=== PATIENT | female | born 1945 | race Caucasian/White ===

== ENCOUNTER 2019-07-21 04:53 | Inpatient (IN) ==
[~2019-07-21 04:53] MED LIST: 0.9 % SODIUM CHLORIDE 250 ML IV SCH
[2019-07-21] MEDS ORDERED: SCOPOLAMINE 1 PATCH PATCH TOPICAL PRN (05:00)
[2019-07-21] MEDS ORDERED: IPRATROPIUM/ALBUTEROL 3 ML AMPUL.NEB NEB PRN ×2 (05:00→09:51)
[2019-07-21 05:22] LABS: POC Blood Urea Nitrogen 23 mg/dl (8-23); POC CO2 28 mmol/L (22-30); POC Calcium, Ionized 1.15 mmol/L (1.16-1.32); POC Chloride 100 mmol/L (96-108); POC Creatinine 1.3 mg/dl (0.6-1.1); POC Glucose, Random 108 mg/dL (70-105); POC Potassium 4.4 mmol/L (3.3-5.1); POC Sodium 135 mmol/L (133-145)
[2019-07-21] MEDS ORDERED: cefOXitin 2 GM VIAL IV SCH (06:00)
[2019-07-21] MEDS ORDERED: ROCURONIUM 10 MG/ML ML IV ONE (07:44)
[2019-07-21] MEDS ORDERED: MIDAZOLAM 2 MG/2 ML VIAL ONE (07:44)
[2019-07-21] MEDS ORDERED: DEXAMETHASONE 10 MG/ML VIAL ONE (07:44)
[2019-07-21] MEDS ORDERED: KETAMINE 10 MG/ML ML ONE (07:44)
[2019-07-21] MEDS ORDERED: ONDANSETRON 4 MG/2 ML VIAL ONE (07:44)
[2019-07-21] MEDS ORDERED: HYDROmorphone 2 MG/ML VIAL ONE (07:44)
[2019-07-21] MEDS ORDERED: LIDOCAINE HCL/PF 100 MG/5 ML SYRINGE IV ONE (07:44)
[2019-07-21] MEDS ORDERED: PROPOFOL 200 MG/20 ML VIAL IV ONE (07:44)
[2019-07-21] MEDS ORDERED: SUGAMMADEX SODIUM 200 MG/2 ML VIAL IV ONE (07:44)
[2019-07-21] MEDS ORDERED: GLYCOPYRROLATE 0.2 MG/ML VIAL IV ONE (07:44)
[2019-07-21] MEDS ORDERED: GELATIN SPONGE,ABSORBABLE 1 EACH SPONGE TOPICAL ONE (09:00)
[2019-07-21] MEDS ORDERED: BUPIVACAINE W/EPI 0.25% 50 ML VIAL IJ ONE (09:10)
[2019-07-21] MEDS ORDERED: ONDANSETRON 4 MG/2 ML VIAL IV PRN ×2 (09:25→09:51)
[2019-07-21] MEDS ORDERED: ONDANSETRON 4 MG ODT TABLET SL PRN (09:37)
[2019-07-21] MEDS ORDERED: ALBUTEROL SULFATE 1 PUFF INHALER INH PRN (09:37)
[2019-07-21] MEDS ORDERED: MUPIROCIN OINT 2% 22GM TOPICAL PRN (09:37)
--- NOTE | 2019-07-21 09:41 | Brief Operative Note ---
Date of procedure: 07/21/19 Pre-op diagnosis: right pyelonephritis Post-op diagnosis: same Procedure: right nephrectomy Grafts/Implants: No Anesthesia: GETA Findings: see note Complications: none Surgeon: Sai Nicolas Vice President Quality Improvement: Arden Herndon Estimated blood loss (cc): 1,000 Specimens Removed/Pathology: other (kidney) Condition: stable Disposition: PACU
--- NOTE | 2019-07-21 09:43 | XRay Report ---
HISTORY: Missing metal surgical clamp in the OR FINDINGS: There are no retained surgical instruments within the abdomen. The inferior pelvis is outside the field of view. There are numerous surgical skin reina in the right upper quadrant and there are also multiple vascular clips located to the right of midline, paralleling the lumbar spine. The bowel gas pattern is normal. There is an old severe wedge compression fracture T12 IMPRESSION: No retained surgical instruments Interpreted and Authenticated by: Eran Kumar 07/21/19
[2019-07-21] MEDS ORDERED: METHOCARBAMOL 1,000 MG/10 ML VIAL IV PRN (09:51)
[2019-07-21] MEDS ORDERED: MEPERIDINE 25 MG/ML SYRINGE IV PRN (09:51)
[2019-07-21] MEDS ORDERED: LACTATED RINGERS 1,000 ML IV SCH (10:00)
--- NOTE | 2019-07-21 10:03 | Operative Note ---
DATE OF OPERATION: 07/21/2019 PREOPERATIVE DIAGNOSIS: Right pyelonephritis. POSTOPERATIVE DIAGNOSIS: Right pyelonephritis. PROCEDURE: Right nephrectomy. SURGEON: Sai Nicolas M.D. SILVICULTURIST: Arden Herndon M.D. INDICATION: The patient is a 74-year-old lady who has recurrent urinary infections. These are enterococcus. 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 There is only approximately 15 to 20% function on this side, and the decision was made because of recurrent infections to remove the kidney. PROCEDURE: The patient was identified and consent was signed. She was given general anesthesia, placed in supine position, and prepped and draped in standard fashion. An incision was made subcostally, and this was carried down to the fascia with electrocautery. The abdominal cavity was opened, and we were able to identify the colon. This was carefully rotated medially, and an incision was made along the white line of Toldt. We then carefully dissected down to the blood vessels. At this point, the renal artery was transected, and we were finally able to get bleeding under control, and this was doubly-ligated. We were then able to find the renal artery and divide this and then also accessory arteries and veins. At this point, this freed up the hilum. There was scar tissue inferiorly in the retroperitoneum. This was divided. We were able to find the ureter and open this and remove the stent without difficulty. The ureter was doubly-ligated and then the kidney was removed. We did irrigate the wound copiously. Gelfoam and Avitene were then placed in the wound and bleeding was controlled. The bowel was placed back in its normal position. The fascia was closed in two layers with 0 PDS. Subcutaneous tissue was closed after irrigation. The wound was closed with reina. The patient was then awoken and taken to recovery room in stable condition. Local anesthesia was used and estimated blood loss was 1000 mL. She did receive 1 unit of red blood cells. Needle and sponge count were correct. BUTCH:kristine Job ID: [id number] Doc ID: [id number] Sai Nicolas MD
[2019-07-21] MEDS: fentaNYL 100 MCG/2 ML VIAL IV PRN ×2 (10:14→10:16)
[2019-07-21] MEDS: DEXTROSE 5%-1/2NS W/20MEQ KCL 1,000 ML IV SCH ×2 (10:50→21:19)
[2019-07-21] MEDS: VANCOMYCIN 1,000 MG in 0.9 % SODIUM CHLORIDE 250 ML IV SCH (11:01)
[2019-07-21] MEDS: 0.9 % SODIUM CHLORIDE 10 ML SYRINGE IV SCH ×6 (11:15→22:00)
[2019-07-21] MEDS: INSULIN LISPRO 1 UNIT/0.01 ML UNIT SQ SCH ×3 (11:52→20:49)
[2019-07-21] MEDS ORDERED: POTASSIUM CHLORIDE 10 MEQ TABLET PO SCH (12:00)
[2019-07-21] MEDS: MUPIROCIN OINT 2% 22GM NARES SCH ×2 (12:39→20:48)
[2019-07-21] MEDS: ACETAMINOPHEN 650 MG/65 ML BOTTLE IV PRN ×2 (13:38→20:55)
[2019-07-21] MEDS: SUCRALFATE 1 GM TABLET PO SCH ×3 (13:44→20:51)
[2019-07-21] MEDS: LORazepam 1 MG TABLET PO PRN ×2 (14:05→21:45)
[2019-07-21] MEDS: FAMOTIDINE 20 MG TABLET PO SCH (20:51)
[2019-07-21] MEDS: ALLOPURINOL 100 MG TABLET PO SCH (20:51)
[2019-07-21] MEDS: DOCUSATE SODIUM 100 MG CAPSULE PO SCH (20:51)
[2019-07-22] MEDS: BUDESONIDE 0.5 MG/2 ML AMPUL.NEB NEB SCH ×2 (01:20→09:33)
[2019-07-22] MEDS: LORazepam 1 MG TABLET PO PRN ×2 (04:47→22:19)
[2019-07-22] MEDS: 0.9 % SODIUM CHLORIDE 10 ML SYRINGE IV SCH ×4 (05:28→23:24)
[2019-07-22 05:54] LABS: Hematocrit 37.1 % (36.0-48.0); Hemoglobin 11.9 g/dL (12.0-15.0); Mean Cell Volume 93.3 fL (80.0-100.0); Mean Corpuscular HGB Conc 32.1 g/dL (31.0-36.0); Mean Platelet Volume 7.6 fL (7.4-10.4); Platelet Count 168 K/mcL (140-440); RBC 3.98 M/mcL (4.00-5.20); Red Cell Distribution Width 17.6 % (11.5-14.5); WBC 13.2 K/mcL (4.5-11.0)
[2019-07-22 06:48] LABS: Blood Urea Nitrogen 20 mg/dl (8-23); Carbon Dioxide 20 mmol/L (22-30); Chloride 97 mmol/L (96-108); Glomerular Filtration Rate 44; Glucose 270 mg/dL (70-105)
[2019-07-22] MEDS ORDERED: 0.9 % SODIUM CHLORIDE 1,000 ML IV SCH (07:15)
--- NOTE | 2019-07-22 07:20 | General Surgery Progress Note ---
Subjective Patient reports: pain is less, tolerating liquids well, no flatus Narrative: Note initiated : 07/22/19 at 7:18 am Service Date, if different from initiated Date: [] Patient: Luly Alba 74 y/o F admitted on 07/21/19 for Right Nephrectomy. Chief Complaint: POD #1 patient doing well. K+ is high. will change iv fluid. wound clean and dry. ambulate today. keep on telemetry for time being. Objective Temp Pulse Resp BP Pulse Ox 97.2 F 65 16 104/52 96 07/22/19 04:00 07/21/19 23:40 07/22/19 04:00 07/22/19 04:00 07/22/19 04:00 - Additional Data Intake & Output - Last 24 hours: Intake & Output 07/20/19 07/21/19 07/22/19 07/23/19 05:59 05:59 05:59 05:59 Intake Total 4850 Output Total 2150 Balance 2700 Weight 183 lb 193 lb - Labs 07/22/19 03:50 07/22/19 03:50 Diabetes panel 07/22/19 Range/Units 03:50 Sodium 130 L (133-145) mmol/L Potassium 5.9 H* (3.3-5.1) mmol/L Chloride 97 (96-108) mmol/L Carbon Dioxide 20 L (22-30) mmol/L BUN 20 (8-23) mg/dl Creatinine 1.2 H (0.6-1.1) mg/dl Glucose 270 H (70-105) mg/dL Calcium 8.0 L (8.6-10.4) mg/dl Calcium panel 07/22/19 Range/Units 03:50 Calcium 8.0 L (8.6-10.4) mg/dl Pituitary panel 07/22/19 Range/Units 03:50 Sodium 130 L (133-145) mmol/L Potassium 5.9 H* (3.3-5.1) mmol/L Chloride 97 (96-108) mmol/L Carbon Dioxide 20 L (22-30) mmol/L BUN 20 (8-23) mg/dl Creatinine 1.2 H (0.6-1.1) mg/dl Glucose 270 H (70-105) mg/dL Calcium 8.0 L (8.6-10.4) mg/dl Adrenal panel 07/22/19 Range/Units 03:50 Sodium 130 L (133-145) mmol/L Potassium 5.9 H* (3.3-5.1) mmol/L Chloride 97 (96-108) mmol/L Carbon Dioxide 20 L (22-30) mmol/L BUN 20 (8-23) mg/dl Creatinine 1.2 H (0.6-1.1) mg/dl Glucose 270 H (70-105) mg/dL Calcium 8.0 L (8.6-10.4) mg/dl Assessment and Plan - Time Spent With Patient Total time spent is greater than 50% in coordination of care (as documented) at patient's floor/unit and/or counseling patient:
[2019-07-22] MEDS: oxyCODONE/APAP 5/325MG TABLET PO PRN ×3 (07:44→17:29)
[2019-07-22] MEDS: INSULIN LISPRO 1 UNIT/0.01 ML UNIT SQ SCH ×4 (07:44→22:10)
[2019-07-22] MEDS: 0.9 % SODIUM CHLORIDE 1,000 ML IV SCH ×2 (07:46→22:01)
[2019-07-22] MEDS: AMIODARONE HCL 200 MG TABLET PO SCH (07:47)
[2019-07-22] MEDS: METOPROLOL SUCCINATE 25 MG TAB.XL.24H PO SCH (09:32)
[2019-07-22] MEDS: LISINOPRIL 5 MG TABLET PO SCH (09:32)
[2019-07-22] MEDS: MAGNESIUM OXIDE 400 MG TABLET PO SCH (09:32)
[2019-07-22] MEDS: SUCRALFATE 1 GM TABLET PO SCH ×4 (09:32→22:10)
[2019-07-22] MEDS: FUROSEMIDE 40 MG TABLET PO SCH (09:32)
[2019-07-22] MEDS: DOCUSATE SODIUM 100 MG CAPSULE PO SCH ×2 (09:32→22:10)
[2019-07-22] MEDS: FAMOTIDINE 20 MG TABLET PO SCH ×2 (09:32→22:10)
[2019-07-22] MEDS: MUPIROCIN OINT 2% 22GM NARES SCH ×2 (09:33→22:26)
[2019-07-22] MEDS: FOLIC ACID 1 MG TABLET PO SCH (09:33)
[2019-07-22] MEDS: OMEPRAZOLE 20 MG CAPSULE PO SCH (09:33)
[2019-07-22] MEDS: ACETAMINOPHEN 650 MG/65 ML BOTTLE IV PRN ×2 (09:54→19:23)
[2019-07-22] MEDS: DEXTROSE 5%-1/2NS W/20MEQ KCL 1,000 ML IV SCH (11:41)
[2019-07-22] MEDS: VANCOMYCIN 1,000 MG in 0.9 % SODIUM CHLORIDE 250 ML IV SCH (11:42)
[2019-07-22 12:30] LABS: Blood Urea Nitrogen 18 mg/dl (8-23); Carbon Dioxide 23 mmol/L (22-30); Chloride 97 mmol/L (96-108); Glomerular Filtration Rate 44; Glucose 178 mg/dL (70-105)
[2019-07-22] MEDS ORDERED: FUROSEMIDE 20 MG/2 ML VIAL IV ONE (12:38)
[2019-07-22] MEDS: ALLOPURINOL 100 MG TABLET PO SCH (22:10)
[2019-07-23] MEDS: BUDESONIDE 0.5 MG/2 ML AMPUL.NEB NEB SCH ×3 (05:18→21:33)
[2019-07-23] MEDS: 0.9 % SODIUM CHLORIDE 10 ML SYRINGE IV SCH ×3 (05:18→21:21)
[2019-07-23 06:29] LABS: Basophils # (Auto) 0 K/mcL (0.0-0.3); Basophils % (Auto) 0.2 % (0.0-2.0); Eosinophils # (Auto) 0.1 K/mcL (0.0-0.7); Eosinophils % (Auto) 1.9 % (0.0-7.0); Granulocytes % (Auto) 78.9 % (38.0-78.0); Hematocrit 36.5 % (36.0-48.0); Hemoglobin 11.6 g/dL (12.0-15.0); Lymphocytes # (Auto) 0.7 K/mcL (1.5-4.8); Lymphocytes % (Auto) 9.2 % (15.5-49.0); Mean Corpuscular HGB Conc 31.9 g/dL (31.0-36.0); Mean Platelet Volume 7.6 fL (7.4-10.4); Monocytes # (Auto) 0.8 K/mcL (0.1-0.9); Monocytes % (Auto) 9.8 % (1.0-12.0); Platelet Count 156 K/mcL (140-440); RBC 3.88 M/mcL (4.00-5.20); Red Cell Distribution Width 17.5 % (11.5-14.5); WBC 7.8 K/mcL (4.5-11.0)
[2019-07-23] MEDS: oxyCODONE/APAP 5/325MG TABLET PO PRN ×6 (07:17→23:05)
[2019-07-23] MEDS: INSULIN LISPRO 1 UNIT/0.01 ML UNIT SQ SCH ×4 (07:19→21:19)
[2019-07-23] MEDS: AMIODARONE HCL 200 MG TABLET PO SCH (07:55)
[2019-07-23] MEDS: LISINOPRIL 5 MG TABLET PO SCH (09:46)
[2019-07-23] MEDS: FAMOTIDINE 20 MG TABLET PO SCH ×2 (09:46→21:21)
[2019-07-23] MEDS: SUCRALFATE 1 GM TABLET PO SCH ×4 (09:47→20:25)
[2019-07-23] MEDS: OMEPRAZOLE 20 MG CAPSULE PO SCH (09:47)
[2019-07-23] MEDS: FOLIC ACID 1 MG TABLET PO SCH (09:47)
[2019-07-23] MEDS: FUROSEMIDE 40 MG TABLET PO SCH (09:47)
[2019-07-23] MEDS: METOPROLOL SUCCINATE 25 MG TAB.XL.24H PO SCH (09:47)
[2019-07-23] MEDS: DOCUSATE SODIUM 100 MG CAPSULE PO SCH ×2 (09:47→21:21)
[2019-07-23] MEDS: MAGNESIUM OXIDE 400 MG TABLET PO SCH (09:48)
[2019-07-23] MEDS: MUPIROCIN OINT 2% 22GM NARES SCH ×2 (09:48→23:04)
--- NOTE | 2019-07-23 09:53 | General Surgery Progress Note ---
Subjective Patient reports: feels better, tolerating a regular diet, no flatus Narrative: Note initiated : 07/23/19 at 9:52 am Service Date, if different from initiated Date: [] Patient: Luly Alba 74 y/o F admitted on 07/21/19 for Right Nephrectomy. Chief Complaint: POD #2 patient doing better. af/vss wound clean and dry. transfer to floor. ambulate Objective Temp Pulse Resp BP Pulse Ox 98.8 F 75 20 145/63 96 07/23/19 07:20 07/23/19 09:25 07/23/19 09:25 07/23/19 07:20 07/23/19 07:33 - Additional Data Intake & Output - Last 24 hours: Intake & Output 07/21/19 07/22/19 07/23/19 07/24/19 05:59 05:59 05:59 05:59 Intake Total 4850 3790 300 Output Total 2150 2200 275 Balance 2700 1590 25 Weight 183 lb 193 lb 202 lb - Labs 07/23/19 03:40 07/23/19 07:05 Diabetes panel 07/22/19 07/23/19 Range/Units 11:05 07:05 Sodium 132 L TNP (133-145) mmol/L Potassium 5.3 H TNP (3.3-5.1) mmol/L Chloride 97 TNP (96-108) mmol/L Carbon Dioxide 23 TNP (22-30) mmol/L BUN 18 TNP (8-23) mg/dl Creatinine 1.2 H TNP (0.6-1.1) mg/dl Glucose 178 H TNP (70-105) mg/dL Calcium 8.0 L TNP (8.6-10.4) mg/dl Calcium panel 07/22/19 07/23/19 Range/Units 11:05 07:05 Calcium 8.0 L TNP (8.6-10.4) mg/dl Pituitary panel 07/22/19 07/23/19 Range/Units 11:05 07:05 Sodium 132 L TNP (133-145) mmol/L Potassium 5.3 H TNP (3.3-5.1) mmol/L Chloride 97 TNP (96-108) mmol/L Carbon Dioxide 23 TNP (22-30) mmol/L BUN 18 TNP (8-23) mg/dl Creatinine 1.2 H TNP (0.6-1.1) mg/dl Glucose 178 H TNP (70-105) mg/dL Calcium 8.0 L TNP (8.6-10.4) mg/dl Adrenal panel 07/22/19 07/23/19 Range/Units 11:05 07:05 Sodium 132 L TNP (133-145) mmol/L Potassium 5.3 H TNP (3.3-5.1) mmol/L Chloride 97 TNP (96-108) mmol/L Carbon Dioxide 23 TNP (22-30) mmol/L BUN 18 TNP (8-23) mg/dl Creatinine 1.2 H TNP (0.6-1.1) mg/dl Glucose 178 H TNP (70-105) mg/dL Calcium 8.0 L TNP (8.6-10.4) mg/dl Assessment and Plan - Time Spent With Patient Total time spent is greater than 50% in coordination of care (as documented) at patient's floor/unit and/or counseling patient:
[2019-07-23 10:40] LABS: Blood Urea Nitrogen 17 mg/dl (8-23); Calcium 7.4 mg/dl (8.6-10.4); Carbon Dioxide 22 mmol/L (22-30); Chloride 98 mmol/L (96-108); Glomerular Filtration Rate 40; Glucose 192 mg/dL (70-105)
[2019-07-23] MEDS ORDERED: ONDANSETRON 4 MG/2 ML VIAL IV PRN (11:21)
[2019-07-23] MEDS ORDERED: ALBUTEROL SULFATE 1 PUFF INHALER INH PRN (11:21)
[2019-07-23] MEDS ORDERED: IPRATROPIUM/ALBUTEROL 3 ML AMPUL.NEB NEB PRN (11:21)
[2019-07-23] MEDS ORDERED: BISACODYL 10 MG SUPP.RECT PR ONE (11:31)
[2019-07-23] MEDS: LORazepam 1 MG TABLET PO PRN (18:15)
[2019-07-23] MEDS ORDERED: ALLOPURINOL 100 MG TABLET PO SCH (21:00)
[2019-07-24] MEDS: oxyCODONE/APAP 5/325MG TABLET PO PRN ×2 (03:35→07:34)
[2019-07-24] MEDS: 0.9 % SODIUM CHLORIDE 10 ML SYRINGE IV SCH (07:21)
[2019-07-24] MEDS: INSULIN LISPRO 1 UNIT/0.01 ML UNIT SQ SCH (07:23)
[2019-07-24] MEDS ORDERED: OMEPRAZOLE 20 MG CAPSULE PO SCH (07:30)
[2019-07-24] MEDS: LORazepam 1 MG TABLET PO PRN (07:35)
[2019-07-24] MEDS ORDERED: AMIODARONE HCL 200 MG TABLET PO SCH (08:00)
[2019-07-24] MEDS: DOCUSATE SODIUM 100 MG CAPSULE PO SCH (08:32)
[2019-07-24] MEDS: FAMOTIDINE 20 MG TABLET PO SCH (08:33)
[2019-07-24] MEDS: SUCRALFATE 1 GM TABLET PO SCH (08:33)
[2019-07-24 08:49] LABS: Blood Urea Nitrogen 14 mg/dl (8-23); Calcium 8.4 mg/dl (8.6-10.4); Carbon Dioxide 21 mmol/L (22-30); Chloride 100 mmol/L (96-108); Glomerular Filtration Rate 44; Glucose 141 mg/dL (70-105)
[2019-07-24] MEDS ORDERED: LISINOPRIL 5 MG TABLET PO SCH (09:00)
[2019-07-24] MEDS ORDERED: METOPROLOL SUCCINATE 25 MG TAB.XL.24H PO SCH (09:00)
[2019-07-24] MEDS ORDERED: FUROSEMIDE 40 MG TABLET PO SCH (09:00)
[2019-07-24] MEDS ORDERED: MAGNESIUM OXIDE 400 MG TABLET PO SCH (09:00)
[2019-07-24] MEDS ORDERED: FOLIC ACID 1 MG TABLET PO SCH (09:00)
--- NOTE | 2019-07-24 09:03 | Discharge Plan ---
Discharge Plan - Patient/Caregiver Discharge Instructions Activity: ambulate only with your walker, increase activity as tolerated Diet: Consistent Carbohydrate Additional Instructions: dressing changes as needed Prescriptions: oxyCODONE/APAP [Percocet 5-325 mg] 5 mg PO Q4HP PRN #30 tab PRN Reason: Pain Level 3-6 Prescription Printed - Follow up Plan Follow up with: Sai Nicolas MD [Physician] - Disposition: Home, Self-Care Prognosis: Good Rehab Potential: Good Overall status at discharge: patient is back to baseline
--- NOTE | 2019-07-24 09:14 | Discharge Plan ---
Discharge Plan - Patient/Caregiver Discharge Instructions Activity: ambulate only with your walker, increase activity as tolerated Diet: Consistent Carbohydrate Additional Instructions: Dressing changes as needed Activity: Ambulate only with your walker; increase activity as tolerated Diet: Consistent Carbohydrate Prescriptions: oxyCODONE/APAP [Percocet 5-325 mg] 5 mg PO Q4HP PRN #30 tab PRN Reason: Pain Level 3-6 Prescription Printed - Follow up Plan Follow up with: Sai Nicolas MD [Physician] - (Please call thursday to schedule a follow up w ith Dr. Nicolas.) Disposition: Home, Self-Care Care Plan Goals: This discharge packet is provided to you to help keep you informed about your care. We want to ensure you get everything you need when you go home. You will also be receiving a call from us in a few days to follow up with you and see how you are doing since your discharge. This gives us a chance to listen to any concerns you maybe experiencing since you were discharged or any additional needs you may have, as well as providing us feedback on your care experience. We strive to always provide excellent care and thank you for your feedback and for choosing [facility]. Prognosis: Good Rehab Potential: Good
[2019-07-24] MEDS: BUDESONIDE 0.5 MG/2 ML AMPUL.NEB NEB SCH (09:17)
--- NOTE | 2019-07-24 09:17 | General Surgery Progress Note ---
Subjective Patient reports: no new complaints, tolerating a regular diet, bowel movement Narrative: Note initiated : 07/24/19 at 9:14 am Service Date, if different from initiated Date: [] Patient: Luly Alba 74 y/o F admitted on 07/21/19 for Right Nephrectomy. Chief Complaint: [] POD #3 patient doing well. + BM, wound clean and dry. will d/c to home. Objective Temp Pulse Resp BP Pulse Ox 99.1 F H 80 20 110/70 100 07/24/19 06:43 07/24/19 07:40 07/24/19 06:43 07/24/19 08:32 07/24/19 06:43 - Additional Data Intake & Output - Last 24 hours: Intake & Output 07/22/19 07/23/19 07/24/19 07/25/19 05:59 05:59 05:59 05:59 Intake Total 4850 3790 1450 120 Output Total 2150 2200 1450 350 Balance 2700 1590 0 -230 Weight 193 lb 202 lb 197 lb - Labs 07/23/19 03:40 07/24/19 07:09 Diabetes panel 07/23/19 07/23/19 07/24/19 Range/Units 07:05 09:52 07:09 Sodium TNP 130 L 133 Potassium TNP 4.3 4.1 Chloride TNP 98 100 Carbon Dioxide TNP 22 21 L BUN TNP 17 14 Creatinine TNP 1.3 H 1.2 H Glucose TNP 192 H 141 H Calcium TNP 7.4 L 8.4 L Calcium panel 07/23/19 07/23/19 07/24/19 Range/Units 07:05 09:52 07:09 Calcium TNP 7.4 L 8.4 L Pituitary panel 07/23/19 07/23/19 07/24/19 Range/Units 07:05 09:52 07:09 Sodium TNP 130 L 133 Potassium TNP 4.3 4.1 Chloride TNP 98 100 Carbon Dioxide TNP 22 21 L BUN TNP 17 14 Creatinine TNP 1.3 H 1.2 H Glucose TNP 192 H 141 H Calcium TNP 7.4 L 8.4 L Adrenal panel 07/23/19 07/23/19 07/24/19 Range/Units 07:05 09:52 07:09 Sodium TNP 130 L 133 Potassium TNP 4.3 4.1 Chloride TNP 98 100 Carbon Dioxide TNP 22 21 L BUN TNP 17 14 Creatinine TNP 1.3 H 1.2 H Glucose TNP 192 H 141 H Calcium TNP 7.4 L 8.4 L Assessment and Plan - Time Spent With Patient Total time spent is greater than 50% in coordination of care (as documented) at patient's floor/unit and/or counseling patient:
[2019-07-24] MEDS: MUPIROCIN OINT 2% 22GM NARES SCH (09:53)
--- NOTE | 2019-07-25 08:00 | Discharge Summary ---
DATE OF ADMISSION: 07/21/2019 DATE OF DISCHARGE: 07/24/2019 PREOPERATIVE DIAGNOSIS: Pyelonephritis of the right kidney. POSTOPERATIVE DIAGNOSIS: Pyelonephritis of the right kidney. PROCEDURE: Right nephrectomy. SURGEON: Sai Nicolas MD INDICATION: The patient is a 74-year-old lady who developed recurrent pyelonephritis with an enterococcus on the right side. She does have a UPJ obstruction and a stent was placed previously. She only has approximately 15 to 20% function on the right side and the decision was made to do a nephrectomy to help with her infections. HOSPITAL COURSE: The patient was taken to the operating room on 07/21/19 where a nephrectomy was performed. She did receive 1 unit of packed red blood cells and for the rest of her hospital stay, her hematocrit was stable. She was advanced through her diet and is now ready for discharge to home. Her wound is clean and dry. Pathology is pending. She did receive vancomycin preoperatively and postoperatively. She is asymptomatic. Her pain is being controlled with Percocet. We will discharge her to home, remove her reina in 10 days to 2 weeks, and follow up as an outpatient. SeniaZ:[email or web address] Job ID: [id number] Doc ID: [id number] Sai Nicolas MD
--- NOTE | 2019-07-25 14:09 | Surgical Pathology Report ---
HISTOLOGY SPECIMEN MICROSCOPIC DIAGNOSIS KIDNEY, RIGHT, NEPHRECTOMY: -- CORTICAL ATROPHY WITH ASSOCIATED CHRONIC INFLAMMATION, CONSISTENT WITH HISTORY OF CHRONIC PYELONEPHRITIS. -- RENAL CALYCES AND URETER WITH MODERATE ACUTE AND CHRONIC INFLAMMATION. -- NO MALIGNANCY IDENTIFIED. (DMT:adj) CLINICAL HISTORY Chronic pyelonephritis. GROSS DESCRIPTION Received in formalin labeled right kidney, is a 190 gram, 13.8 x 8.8 x 4.8 cm radical nephrectomy specimen. The external surface is inked black. Numerous sutures and metal clips are present at the hilum. The renal artery, vein and ureter are cut flush at the hilum. The specimen is bisected to reveal an 8.5 x 4.3 x 2.7 cm atrophic kidney. The kidney has prominent hilar fat and thinned cortex. The cortex averages between 0.8 and 1.2 cm in thickness. The central calyx is dilated. The renal pyramid architecture is maintained. No mass lesions are identified. No associated adrenal gland is seen within the perinephric fat. Nurse Discharge sections are submitted as follows: A1 - vascular and ureter margins at hilum; A2-A4 - apprenticeship representative cross sections of cortex. (DMT:adj) Electronically Signed by: Olvin Tim M.D.
== END 2019-07-24 10:05 | disposition home or self-care (01) | DRG 660 ==
LOC: ICU 04:53 → MEDSUR 07-23 15:25